=== PATIENT | male | born 1995 | race Caucasian/White ===

== ENCOUNTER 2018-03-23 06:44 | Emergency (ER) | payer MEDICAID, SELFPAY ==
[2018-03-23 06:45] VITALS: BP 147/84; PULSE 104; RESP 18; TEMP 36.6; O2SAT 96; BMI 31.9
--- NOTE | 2018-03-23 07:08 | ED.DCSUM_ITS ---
- ER Visit Summary Date of Service: 03/23/18 Chief Complaint: Dizzy, sore throat History of Present Illness: The patient is a 22 M reports his girlfriend was diagnosed with bronchitis last weekend. Patient has had congestion and dry cough for the past 2 days. He developed a generalized headache yesterday. He felt lightheaded with quick movements at work this morning. He did take aspirin at work and was told to come to the emergency room. Patient does report a history of chronic headaches and this is consistent with his chronic headaches. He normally takes aspirin for his headaches. He denies fever or recent head injury. Physical Examination: Vital signs in triage are significant for heart rate 104, otherwise unremarkable. At the time of my examination heart rate is in the 80s and 90s. Head and neck examination is grossly unremarkable with no external sign of trauma. TMs are clear bilaterally. He is very mild posterior pharyngeal sinus drainage. Uvula is midline with normal tonsillar beds. Heart is regular rate and rhythm. Lung sounds are clear. Abdomen is soft and nontender. Neuro exam is unremarkable. Test Results: Two-view chest x-ray reveals no focal infiltrate. Emergency Department Course and Treatment: Patient is given Toradol, Zofran, and IV fluids. On repeat evaluation he does report improvement. He was observed ambulate into the bathroom and back without difficulty. At this time I feel patient has viral URI symptoms. He is encouraged use Tylenol or ibuprofen. If he gets increasing congestion he can take Mucinex over-the- counter. He is given a work note for today. Treatment Plan: [] Disposition: Discharge Impression: 1. Viral URI 2. Cephalgia, improved This note was generated with [employer] dictation software. It may contain incorrect words, spelling, and punctuation that were not noted in review of the chart prior to signing ED Disposition - Plan for ED Patient: Chief Complaint: Dizziness Referrals: Care Physician,No Primary [Primary Care Provider] -
[2018-03-23] MEDS: 0.9% Normal Saline 1,000 ML 1000 ML IV (07:31)
[2018-03-23] MEDS: Ondansetron 4 MG/2 ML Vial IV (07:32)
[2018-03-23] MEDS: Ketorolac 30 MG/ML Syringe IV (07:32)
--- NOTE | 2018-03-23 07:43 | RAD_ITS ---
STUDY: X-RAY CHEST REASON FOR EXAM: Male, 22 years old. Persistent cough. TECHNIQUE: PA and lateral views of the chest. COMPARISON: None. FINDINGS: EKG electrodes are seen. The lungs are clear and expanded. Scattered calcified granulomas. There is no demonstrated pleural abnormality. Normal size heart. Normal mediastinum and kami. Normal visualized pulmonary arteries. Normal visualized aortic arch and descending thoracic aorta. Normal visualized thoracic spine. Normal visualized ribs, clavicles, and shoulders. There is no demonstrated abnormality of the visualized soft tissue structures of the upper abdomen. RAD/Chest PA and Lateral IMPRESSION: Normal x-ray examination of the chest. Electronically Signed: Braxton Wright MD at 8:12 EDT Tel [phone], Service support ,
--- NOTE | 2018-03-23 08:18 | ED.DEP ---
ED Disposition - Plan for ED Patient: Disposition: Home or Assisted Living Chief Complaint: Dizziness Instructions: ED Upper Resp Infec No Abx Tx, ED Cephalgia Unspecified Referrals: Horace Way MD [STAFF PHYSICIAN] - As Needed
== END 2018-03-23 08:33 | disposition home or self-care (01) ==
PROVIDERS: Emergency Provider Emergency Medicine
DX: J06.9 Acute upper respiratory infection, unspecified (principal); R51 Headache; R42 Dizziness and giddiness
CPT/HCPCS: 71046; 96374; 96375; 99282; J7030; A4216; J2405

== ENCOUNTER 2018-08-10 07:17 | Emergency (ER) | payer MEDICAID, SELFPAY ==
[2018-08-10 07:17] VITALS: BP 154/84; PULSE 90; RESP 18; TEMP 36.4; O2SAT 98; BMI 34.7
--- NOTE | 2018-08-10 07:28 | RAD_ITS ---
STUDY: X-RAY - RIGHT FOOT CLINICAL: Lateral foot pain, no specific injury. TECHNIQUE: 3 view(s) of the foot. COMPARISON: None. FINDINGS: Normal talus, calcaneus, and tarsal bones. Normal visualized subtalar, talonavicular, calcaneocuboid, tarsal and tarsometatarsal articulations. Normal metatarsi. Normal metatarsophalangeal joint of the great toe. Normal tibial and fibular sesamoid bones. Normal interphalangeal joint of the great toe. Normal phalanges of the great toe. Normal second through fifth metatarsophalangeal joints. Normal interphalangeal joints and phalanges of the lesser toes. The soft tissue structures are unremarkable. RAD/Foot min 3 Views IMPRESSION: Normal x-ray examination of the right foot. Electronically Signed: Jose Howard MD at 8:38 EDT Tel , Service support ,
--- NOTE | 2018-08-10 08:46 | ED.VISSUMM ---
- ER Visit Summary Date of Service: 08/10/18 Chief Complaint: [Pain right foot] History of Present Illness: The patient is a 23 M [presents the emergency department complaint of pain in his right foot that started this morning. Patient states that he got out of bed when he stepped on his foot he noticed significant discomfort of the dorsal lateral aspect of the foot. Patient denies any other trauma. Patient felt normal when he went to bed last night. Patient went to work and could not work so he came to the ER for evaluation.] Physical Examination: [Right foot-no deformity. There is no ecchymosis or bruising noted. There is no erythema or warmth. Patient tender diffusely dorsal laterally. He is nervously intact.] Test Results: [X-rays of the right foot obtained were normal] Emergency Department Course and Treatment: Patient refused crutches] Treatment Plan: [Patient advised use ibuprofen or Tylenol for discomfort as he did not want anything stronger for pain.] Disposition: [Discharged home in stable condition] Impression: Right foot pain-suspect sprain] This note was generated with [employer] dictation software. It may contain incorrect words, spelling, and punctuation that were not noted in review of the chart prior to signing ED Disposition - Plan for ED Patient: Chief Complaint: Lower Extremity Injury Referrals: Care Physician,No Primary [Primary Care Provider] -
--- NOTE | 2018-08-10 08:47 | ED.DEP ---
ED Disposition - Plan for ED Patient: Chief Complaint: Lower Extremity Injury Instructions: ED Sprain Foot Referrals: Care Physician,No Primary [Primary Care Provider] - Horace Way MD [STAFF PHYSICIAN] - 5-7 Days
[2018-08-10 08:51] VITALS: BP 108/77; PULSE 69; RESP 17; O2SAT 100
== END 2018-08-10 08:52 | disposition home or self-care (01) ==
PROVIDERS: Emergency Provider Emergency Medicine
DX: M79.671 Pain in right foot (principal); W50.0XXA Accidental hit or strike by another person, initial encounter; Y93.9 Activity, unspecified; Y92.9 Unspecified place or not applicable; Y99.9 Unspecified external cause status; R56.9 Unspecified convulsions
CPT/HCPCS: 73630; 99282

== ENCOUNTER 2019-08-20 14:11 | Emergency (ER) | payer SELFPAY ==
[2019-08-20 14:12] VITALS: BP 139/77; PULSE 70; RESP 16; TEMP 36.7; O2SAT 99; BMI 32.8
--- NOTE | 2019-08-20 14:29 | EKG12_ITS ---
Test Reason : PAIN Blood Pressure : / mmHG Vent. Rate : 086 BPM Atrial Rate : 086 BPM P-R Int : 154 ms QRS Dur : 100 ms QT Int : 376 ms P-R-T Axes : 059 015 027 degrees QTc Int : 449 ms Normal sinus rhythm with sinus arrhythmia Normal ECG Confirmed by JOSEPH NOGUEIRA, OTILIO ([id number]), art editor KIRAN RAGLAND ([id number]) on 08/24/2019 9:45:36 AM Referred By: Confirmed By:ELIDA RUIZ MD
--- NOTE | 2019-08-20 14:33 | RAD_ITS ---
STUDY: X-RAY CHEST REASON FOR EXAM: Male, 24 years old. Chest pain TECHNIQUE: AP COMPARISON: 03/23/2018 FINDINGS: The lungs are clear and expanded. There is no demonstrated pleural abnormality. Normal size heart. Normal mediastinum and kami. Normal visualized pulmonary arteries. Normal visualized aortic arch and descending thoracic aorta. Normal visualized thoracic spine. Normal visualized ribs, clavicles, and shoulders. There is no demonstrated abnormality of the visualized soft tissue structures of the upper abdomen. RAD/Chest 1 View (Portable) IMPRESSION: Stable, nonacute x-ray examination of the chest. Electronically Signed: Gen Rashid MD ([place]) at 14:44 EDT , Service support ,
[2019-08-20] MEDS: 0.9% Normal Saline 1,000 ML 150 ML IV (14:44)
[2019-08-20] MEDS: Ketorolac 30 MG/ML Syringe IV (14:44)
[2019-08-20 14:49] LABS: Absolute Lymphocyte Count 1.42 X10^3/uL (0.83-4.51); Absolute Neutrophil Count 9.7 X10^3/uL (2.0-7.7); Basophil# 0.04 X10^3/uL; Basophil% 0.3 % (0-1); Eosinophil# 0.02 X10^3/uL; Eosinophils% 0.2 % (0-5); Hematocrit 41.1 % (40-54); Hemoglobin 14.5 g/dL (13.0-16.5); Lymphocyte # 1.42 X10^3/ul (4.0); Lymphocyte % 11.5 % (19-41); Mean Corp Hgb Conc 35.3 g/dL (32-36); Mean Corpuscular Hgb 31.3 pg (27.0-32.0); Mean Corpuscular Volume 88.6 fL (80-94); Monocyte# 1.15 X10^3/uL; Monocyte% 9.3 % (0-10); NRBC Flagged by Analyzer 0 % (0-5); Neutrophil # 9.71 X10^3/uL (2.7-7.7); Neutrophil % 78.4 % (47-70); Platelet Count 322 K/mm3 (150-450); RBC Distribution Width CV 11.7 % (11.6-14.6); RBC Distribution Width SD 37.4 fl (35.1-43.9); Red Blood Count 4.64 M/mm3 (4.6-6.2); White Blood Count 12.4 K/mm3 (4.4-11.0)
[2019-08-20 15:01] LABS: Erythrocyte Sedimentation Rate 5 mm/hr (0-15)
[2019-08-20 15:05] LABS: D-Dimer Quantitative (DVT/PE) < 0.27 FEU/ug/m (0.27-0.49)
[2019-08-20 15:07] LABS: Anion Gap 6 (5-15); BUN 10 mg/dL (7-18); BUN/Creat Ratio 9.7 RATIO (10-20); Chloride 108 mmol/L (98-107); Creatinine, Serum 1.03 mg/dL (0.70-1.30); EST Glomerular Filtration Rate 93 mL/min (>60); Est Glom Filt Rate - Afr Amer 113 mL/min (>60); Glucose 108 mg/dL (74-106); Potassium 3.6 mmol/L (3.5-5.1); Sodium Level 140 mmol/L (136-145)
--- NOTE | 2019-08-20 15:24 | ED.DCSUM_ITS ---
- ER Visit Summary Date of Service: 08/20/19 Chief Complaint: [Chest pain] History of Present Illness: The patient is a 24 M [presents to the emergency department complaint chest pain for about a week has been continuous. Patient describes a sharp pain in his left chest that is worse with moving his left arm up and also with breathing. Patient denies any injury to his chest. He denies any nausea or vomiting. He denies any shortness of breath. Patient denies any fever or cough. He has not had pain like this before. Patient has history of seizure disorder. Patient states he has not had a seizure in years.] Patient denies recent travel or surgery. There is no family history of Marfan syndrome. Physical Examination: [HEENT-PERRLA, EOMI. Cranial nerves II through XII grossly intact. TMs clear. Mucous membranes moist. No adenopathy. Cardiovascular-regular rate and rhythm without murmur or ectopy Lungs-clear to auscultation, chest wall stable without crepitus or subcu emphysema. Chest wall-patient has tenderness palpation over the left anterior chest wall that seems to reproduce his pain. Abdomen-normoactive bowel sounds, soft, nontender, no rebound or rigidity, no peritoneal signs. Extremities-intact ?4, normal range of motion, normal pulses, atraumatic] Test Results: [EKG obtained arrival shows sinus rhythm with a ventricular rate of 86 bpm with sinus arrhythmia noted. There is no evidence of pericarditis. CBC with differential obtained which showed a white count of 12.4, hemoglobin 14, hematocrit 41, platelets 322. Chemistries unremarkable. Troponin was less than 0.015. D-dimer was less than 0.27. Sed rate was 5. Chest x-ray was normal.] Emergency Department Course and Treatment: [Patient was given Toradol 30 mill grams IV.] Treatment Plan: [Patient instructed to use ibuprofen for discomfort.] Disposition: [Discharged home in stable condition. Patient advised to follow-up with primary care physician controlled area checker for no doc within next 5 to 7 days.] Impression: [Chest wall pain] This note was generated with [employer] dictation software. It may contain incorrect words, spelling, and punctuation that were not noted in review of the chart prior to signing ED Disposition - Plan for ED Patient: Referrals: Care Physician,No Primary [Primary Care Provider] -
--- NOTE | 2019-08-20 15:26 | ED.DEP ---
ED Disposition - Plan for ED Patient: Instructions: CHEST WALL PAIN, Costochondritis Referrals: Care Physician,No Primary [Primary Care Provider] - Bandar Salvador MD [STAFF PHYSICIAN] - 5-7 Days
[2019-08-20 15:35] VITALS: PULSE 92; RESP 18; O2SAT 98
== END 2019-08-20 15:37 | disposition home or self-care (01) ==
PROVIDERS: Emergency Provider Emergency Medicine
DX: R07.89 Other chest pain (principal); I49.1 Atrial premature depolarization; G40.909 Epilepsy, unspecified, not intractable, without status epilepticus
CPT/HCPCS: 71045; 80048; 84484; 85025; 85379; 85652; 93005; 96361; 96374; 99285